=== PATIENT | female | born 1950 | race Caucasian/White ===

== ENCOUNTER 2017-07-14 14:44 | Inpatient (IN) | payer MEDICARE, OTHER ==
[2017-07-14 14:51] VITALS: BMI 21.1
[2017-07-14] MEDS ORDERED: Barium Sulfate Susp 0.1% w/v, 0.1% w/w 450 mL Bottle PO ONE (15:43)
[2017-07-14] MEDS ORDERED: Sodium Chloride 0.9% 1,000 ML IV ONE ×2 (15:55→22:31)
[2017-07-14 16:50] LABS: INR 0.9
--- NOTE | 2017-07-14 16:53 | C.PDOC ---
History Of Present Illness Patent sent to ED for evaluation of by GI Dr. Henson. Patient has h/o HTN, osteoporosis, and Crohn's disease. Patient states she has been having multiple episodes of bloody diarrhea for approx 2 months. Patient was on vacation in [place] last month, states she was seen in hospital there. A colonoscopy was done that showed ulceration of ileum, and patient was started on PO prednisone taper and 5-ASA. Patient also transfused PRBCs while in [place] and started on PO Ferrous sulfate for anemia. She states she has not had any improvement in her symptoms, and continues to have approx 15 episodes of blood streaked diarrhea daily. Patient c/o generalized weakness and exertional dyspnea. Time Seen by Provider: 07/14/17 15:17 Chief Complaint (Nursing): GI Problem History Per: Patient, Family History/Exam Limitations: no limitations Onset/Duration Of Symptoms: Persistent (2 months ) Current Symptoms Are (Timing): Still Present Severity: Moderate Location Of Pain/Discomfort: Diffuse Quality Of Discomfort: Cramping, "Pain" Associated Symptoms: Diarrhea Past Medical History Reviewed: Historical Data, Nursing Documentation, Vital Signs Vital Signs: Last Vital Signs Temp 97.8 F 07/17/17 07:10 Pulse 59 L 07/17/17 07:10 Resp 20 07/17/17 07:10 BP 106/68 07/17/17 07:10 Pulse Ox 94 L 07/17/17 07:10 - Medical History PMH: Crohn's Disease, HTN - [facility] Procedures EXCISION OF ASCENDING COLON, ENDO, DIAGN (07/14/17) EXCISION OF RECTUM, ENDO (07/14/17) EXCISION OF SIGMOID COLON, ENDO, DIAGN (07/14/17) EXCISION OF TRANSVERSE COLON, ENDO, DIAGN (07/14/17) Family History: States: No Known Family Hx - Social History Hx Alcohol Use: No Hx Substance Use: No - Immunization History Hx Tetanus Toxoid Vaccination: No Hx Influenza Vaccination: Yes Hx Pneumococcal Vaccination: Yes Review Of Systems Except As Marked, All Systems Reviewed And Found Negative. Constitutional: Positive for: Weakness. Negative for: Fever, Chills Cardiovascular: Negative for: Chest Pain, Palpitations Respiratory: Positive for: SOB with Excertion. Negative for: Cough Gastrointestinal: Positive for: Abdominal Pain, Diarrhea, Hematochezia. Negative for: Nausea, Vomiting Skin: Negative for: Rash Physical Exam - Physical Exam Appears: Non-toxic, No Acute Distress, Chronically Ill Skin: Warm, Dry, Pale Eye(s): bilateral: Conjunctiva Pale Oral Mucosa: Moist Cardiovascular: Rhythm Regular Respiratory: Normal Breath Sounds, No Rales, No Rhonchi, No Wheezing Gastrointestinal/Abdominal: Bowel Sounds, Soft, Tenderness (mild diffuse TTP), No Distention, No Guarding, No Rebound, Other (midline vertical surgical scar) Extremity: Normal ROM Extremity: Bilateral: Atraumatic, Normal Color And Temperature, Normal ROM Neurological/Psych: Oriented x3 ED Course And Treatment - Laboratory Results Result Diagrams: 07/17/17 08:14 07/17/17 08:14 O2 Sat by Pulse Oximetry: 100 (RA) Pulse Ox Interpretation: Normal Progress Note: Blood work ordered and reviewed. Patient given IV NS bolus, IV solumedrol. 5:30pm- Called hematology - unable to release CBC, tech unsure why. As per hematology tech, WBC 11.2, Hgb 8.9, Hct 28.0, Plts 462. 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 - Physician Consult Information Physician Contacted: Carmina Genao Outcome Of Conversation: Discussed patient with Dr. Genao, agrees with admission for Crohn's disease exacerbation, weakness, anemia. Dr. Henson for GI , consult entered. Disposition - Disposition Disposition: HOSPITALIZED Disposition Time: 18:22 Condition: STABLE - Clinical Impression Clinical Impression: Symptomatic anemia, General weakness Decision To Admit - Pt Status Changed To: Hospital Disposition Of: Inpatient - Admit Certification Admit to Inpatient:: After my assessment, the patient will require hospitalization for at least two midnights. This is because of the severity of symptoms shown, intensity of services needed, and/or the medical risk in this patient being treated as an outpatient. - InPatient: Physician Admission Certification:: see notes - . Bed Request Type: Regular Admitting Physician: Carmina Genao Patient Diagnosis: Crohns disease, General weakness, Symptomatic anemia
[2017-07-14 16:57] LABS: URINE BILIRUBIN NEGATIVE (NEGATIVE); URINE BLOOD NEGATIVE (NEGATIVE); URINE COLOR Colorless (YELLOW); URINE GLUCOSE (UA) NORMAL (Normal); URINE KETONE NEGATIVE (NEGATIVE); URINE LEUKOCYTE ESTERASE NEG Leu/uL (Negative); URINE PROTEIN NEGATIVE (NEGATIVE); URINE UROBILINOGEN NORMAL mg/dL (0.2-1.0); WBC URINE < 1 /hpf (0-5)
[2017-07-14 17:40] LABS: BASO # 0.1 K/uL (0.0-0.2); BASO % 0.5 % (0.0-2.0); EOS # 0.1 K/uL (0.0-0.7); EOS % 0.8 % (0.0-4.0); HEMATOCRIT 27.8 % (34.0-47.0); LYMPH # 3.4 K/uL (1.0-4.3); LYMPH % 30.3 % (20.0-40.0); MEAN CELL VOLUME 81.4 fL (81.0-99.0); MEAN CORPUSCULAR HEMOGLOBIN 26.1 pg (27.0-31.0); MONO # 0.5 K/uL (0.0-0.8); MONO % 4.6 % (0.0-10.0); RED CELL DISTRIBUTION WIDTH 20.6 % (11.5-14.5); WHITE BLOOD COUNT 11.3 K/uL (4.8-10.8)
[2017-07-14 18:06] LABS: CHLORIDE 95 mmol/L (98-107)
[2017-07-14 18:07] LABS: POTASSIUM 3.7 mmol/L (3.6-5.2); SODIUM 130 mmol/L (132-148)
[2017-07-14 18:09] LABS: ALB/GLOB RATIO 1.4 (1.0-2.1); ALKALINE PHOSPHATASE 38 U/L (38-126); ALT/SGPT 26 U/L (9-52); AST/SGOT 57 U/L (14-36); BILIRUBIN,TOTAL 0.6 mg/dL (0.2-1.3); BLOOD UREA NITROGEN 17 mg/dL (7-17); CARBON DIOXIDE 22 mmol/L (22-30); GFR AFRICAN-AMERICAN > 60; GLUCOSE,RANDOM 71 mg/dL (65-105)
[2017-07-14 18:10] LABS: CALCIUM 8.6 mg/dl (8.6-10.4)
[2017-07-14] MEDS ORDERED: Iodixanol 320 MG/ML 100 ML BOTTLE IV ONE (18:22)
[2017-07-14 21:40] LABS: C DIFF TOXIN A B NEGATIVE (NEGATIVE)
[2017-07-14] MEDS ORDERED: Atropine-Diphenoxylate 0.025-2.5 mg Tab PO SCH (22:00)
[2017-07-14] MEDS ORDERED: Atropine-Diphenoxylate 0.025-2.5 mg Tab ONE (22:24)
[2017-07-14 22:26] LABS: FECAL LEUKOCYTES NEGATIVE (NEGATIVE)
[2017-07-14] MEDS ORDERED: Dextrose 5%/0.9% NS 1,000 ML IV ONE (22:31)
[2017-07-14 22:44] LABS: IRON 195 ug/dL (37-170)
[2017-07-14] MEDS: Hydrocortisone 2.5% Rectal Cream(30 gm) PR SCH (23:17)
[2017-07-15] MEDS ORDERED: Sodium Chloride 0.9% 500 ML IV ONE (00:46)
[2017-07-15 01:57] LABS: HEMATOCRIT 23.4 % (34.0-47.0); MEAN CELL VOLUME 82.4 fL (81.0-99.0); MEAN CORPUSCULAR HEMOGLOBIN 26.8 pg (27.0-31.0); MEAN CORPUSCULAR HGB CONC 32.5 g/dL (33.0-37.0); MEAN PLATELET VOLUME 7.3 fL (7.2-11.7); PLATELET COUNT 392 K/uL (130-400); RED CELL DISTRIBUTION WIDTH 20.8 % (11.5-14.5); WHITE BLOOD COUNT 7.3 K/uL (4.8-10.8)
[2017-07-15 03:20] LABS: NEUTROPHIL 97 % (50-75); TOTAL CELLS COUNTED 100
[2017-07-15 03:23] LABS: LARGE PLATELETS PRESENT
[2017-07-15] MEDS ORDERED: Sodium Chloride 0.9% 1,000 ML IV ONE (05:20)
--- NOTE | 2017-07-15 09:29 | CP.PCM.CON ---
<Cyndi Pretty - Last Filed: 07/15/17 09:33> History of Present Illness - History of Present Illness History of Present Illness: Gastroenterology Fellow/PGY5 Consult Note 66 year old female with history of Hypertension, osteoporosis, and Crohn's disease diagnosed 1976 presenting with weakness. Patient was sent to ER from the outpatient GI clinic with Dr. Henson due to weakness, dehydration, and hypotension. She describes in the last month having up to 14 episodes of diarrhea daily ranging from watery, mucus-blood tinged to loree bloody diarrhea. Associated tenesmus and bilateral upper abdominal pain with all oral intake leading to immediate bowel movement. Admits to feeling weak, lightheaded , dizzy, and a approximate 13 pound weight loss over the last four months. As a result, she underwent EGD and colonoscopy in [facility] a month ago and was told she had diagnosis of Crohn's disease. She has since started Prednisone 60mg for one week and this coming (in two days) would have completed second week of steroid therapy at 55mg. Denies fever, chills, sweats, nausea, vomiting , hematemesis, constipation, eye pain/redness, back pain, kidney stones, skin rash/sores, aphthous ulcers. Denies NSAIDs use. She notes prior episode of ischemic bowel leading to two bowel surgeries in 1976. Subsequently in 1977, she describes profound symptomatic anemia requiring multiple transfusions. She had medical therapy with sulfasalazine for fifteen years. Followed y repeat EGD/colonoscopy and was told no IBD present on histology, switched to Creon for treatment of chronic pancreatitis taking 1-2 pills with every meal from 1989 to two months ago. Records obtained from family with most recent EGD and colonoscopy 06/04/17 to evaluate diarrhea and anemia Labwork: H/H 06/04/17 8.04/24.6 MCV 73.6 EGD- GE junction 38cm, LAGB esophagitis, normal stomach and duodenum -lower 1/3 esophagus biopsies-no dysplasia or intestinal metaplasia, mild chronic gastritis, gastric fundic gland polyp colonoscopy-continuous large ulceration at terminal ileum -pathology: moderate chronic active and focally erosive terminal ileitis -ileocecal valve at area of anastomosis with small bowel - small and medium sized ulcers -pathology: pseudopyogenic metaplasia, marked plasmacytosis (chronic injury), no granulomas-suspicious for IBD/Crohn's disease -cecum: s/p small bowel resection -normal ascending, hepatic flexure, transverse, splenic flexure , descending, sigmoid, rectum, small internal hemorrhoids -pathology- normal mucosa, no microscopic colitis Family- denies colon cancer, IBD, father-PUD Social-denies tobacco, alcohol, illicit drug use Surgery- small bowel resection with anastomosis Review of Systems - Review of Systems Review of Systems: 12-point review of systems negative except for as above Past Patient History - Past Social History Smoking Status: Never Smoked - CARDIAC Hx Hypertension: Yes - GASTROINTESTINAL Hx Crohn's Disease: Yes - PSYCHIATRIC Hx Substance Use: No - SURGICAL HISTORY Hx Surgeries: Yes Other/Comment: intestinal surgery 40 years ago Meds Allergies/Adverse Reactions: Allergies Allergy/AdvReac Type Severity Reaction Status Date / Time Penicillins Allergy Verified 07/14/17 14:50 - Medications Medications: Current Medications Heparin Sodium (Porcine) (Heparin) 5,000 units SC Q8 [facility] Hydrocortisone (Anusol-Hc) 0 gm WI BID [facility] Last Admin: 07/14/17 23:17 Dose: Not Given Pantoprazole Sodium (Protonix Ec Tab) 40 mg PO DAILY [facility] Sucralfate (Carafate Oral Susp) 1 gm PO BID [facility] Physical Exam - Constitutional Appears: No Acute Distress, Chronically Ill - Head Exam Head Exam: ATRAUMATIC, NORMOCEPHALIC - Eye Exam Eye Exam: EOMI, PERRL Pupil Exam: PERRL. absent: Miosis, Mydriatic - ENT Exam ENT Exam: Mucous Membranes Moist, Normal Oropharynx - Neck Exam Neck exam: Positive for: Full Rom, Normal Inspection - Respiratory Exam Respiratory Exam: Clear to Auscultation Bilateral. absent: Rales, Rhonchi, Wheezes - Cardiovascular Exam Cardiovascular Exam: RRR, +S1, +S2. absent: Gallop, Rubs - GI/Abdominal Exam GI & Abdominal Exam: Normal Bowel Sounds, Soft. absent: Distended, Firm, Guarding, Organomegaly, Rebound, Rigid, Tenderness - Extremities Exam Extremities exam: Positive for: normal inspection. Negative for: pedal edema - Neurological Exam Neurological exam: Alert - Psychiatric Exam Psychiatric exam: Normal Affect, Normal Mood - Skin Skin Exam: Dry, Intact, Normal Color, Warm Results - Vital Signs Recent Vital Signs: Last Vital Signs Temp 97.9 F 07/15/17 09:13 Pulse 73 07/15/17 09:13 Resp 18 07/15/17 09:13 BP 96/61 L 07/15/17 09:13 Pulse Ox 99 07/15/17 09:13 - Labs Result Diagrams: 07/15/17 01:47 07/14/17 18:01 Labs: Laboratory Results - last 24 hr 07/14/17 07/14/17 07/14/17 16:24 16:24 16:24 WBC RBC Hgb Hct MCV MCH MCHC RDW Plt Count MPV Neut % (Auto) Lymph % (Auto) [place] % (Auto) Eos % (Auto) Baso % (Auto) Neut # Lymph # [place] # Eos # Baso # Neutrophils % (Manual) Lymphocytes % (Manual) Monocytes % (Manual) Platelet Estimate Large Platelets Polychromasia Anisocytosis (manual) Ovalocytes Rouleaux Schistocytes PT INR APTT Sodium Cancelled Potassium Cancelled Chloride Cancelled Carbon Dioxide Cancelled Anion Gap Cancelled BUN Cancelled Creatinine Est GFR ( Amer) Cancelled Est GFR (Non-Af Amer) Cancelled Random Glucose Cancelled Calcium Cancelled Iron TIBC % Saturation Transferrin Ferritin 15.6 Total Bilirubin Cancelled AST Cancelled ALT Cancelled Alkaline Phosphatase Cancelled C-React Prot High Sens Total Protein Cancelled Albumin Cancelled Globulin Cancelled Albumin/Globulin Ratio Cancelled Lipase 252 Urine Color Urine Clarity Urine pH Ur Specific [place] Urine Protein Urine Glucose (UA) Urine Ketones Urine Blood Urine Nitrate Urine Bilirubin Urine Urobilinogen Ur Leukocyte Esterase Urine WBC (Auto) Stool Leukocytes, Qual C. difficile Ag & Toxin Hepatitis A IgM Ab Negative Hep Bs Antigen Negative Hep B Core IgM Ab Negative Hepatitis C Antibody Reactive Blood Type A POSITIVE Blood Type Confirm A POSITIVE Antibody Screen Negative 07/14/17 07/14/17 07/14/17 16:25 16:25 16:45 WBC RBC Hgb Hct MCV MCH MCHC RDW Plt Count MPV Neut % (Auto) Lymph % (Auto) [place] % (Auto) Eos % (Auto) Baso % (Auto) Neut # Lymph # [place] # Eos # Baso # Neutrophils % (Manual) Lymphocytes % (Manual) Monocytes % (Manual) Platelet Estimate Large Platelets Polychromasia Anisocytosis (manual) Ovalocytes Rouleaux Schistocytes PT 9.4 L INR 0.9 APTT 21 Sodium Potassium Chloride Carbon Dioxide Anion Gap BUN Creatinine Est GFR ( Amer) Est GFR (Non-Af Amer) Random Glucose Calcium Iron TIBC % Saturation Transferrin 288.34 Ferritin Total Bilirubin AST ALT Alkaline Phosphatase C-React Prot High Sens Total Protein Albumin Globulin Albumin/Globulin Ratio Lipase Urine Color Colorless Urine Clarity Clear Urine pH 5.0 Ur Specific [place] 1.002 L Urine Protein Negative Urine Glucose (UA) Normal Urine Ketones Negative Urine Blood Negative Urine Nitrate Negative Urine Bilirubin Negative Urine Urobilinogen Normal Ur Leukocyte Esterase Neg Urine WBC (Auto) < 1 Stool Leukocytes, Qual C. difficile Ag & Toxin Hepatitis A IgM Ab Hep Bs Antigen Hep B Core IgM Ab Hepatitis C Antibody Blood Type Blood Type Confirm Antibody Screen 07/14/17 07/14/17 07/14/17 17:34 18:01 20:01 WBC 11.3 H RBC 3.42 L Hgb 8.9 L Hct 27.8 L MCV 81.4 MCH 26.1 L MCHC 32.0 L RDW 20.6 H Plt Count 455 H MPV 8.0 Neut % (Auto) 63.8 Lymph % (Auto) 30.3 [place] % (Auto) 4.6 Eos % (Auto) 0.8 Baso % (Auto) 0.5 Neut # 7.2 H Lymph # 3.4 [place] # 0.5 Eos # 0.1 Baso # 0.1 Neutrophils % (Manual) Lymphocytes % (Manual) Monocytes % (Manual) Platelet Estimate Large Platelets Polychromasia Anisocytosis (manual) Ovalocytes Rouleaux Schistocytes PT INR APTT Sodium 130 L Potassium 3.7 Chloride 95 L Carbon Dioxide 22 Anion Gap 17 BUN 17 Creatinine 0.8 Est GFR ( Amer) > 60 Est GFR (Non-Af Amer) > 60 Random Glucose 71 Calcium 8.6 Iron TIBC % Saturation Transferrin Ferritin Total Bilirubin 0.6 AST 57 H ALT 26 Alkaline Phosphatase 38 C-React Prot High Sens 1.19 Total Protein 6.0 L Albumin 3.5 Globulin 2.5 Albumin/Globulin Ratio 1.4 Lipase Urine Color Urine Clarity Urine pH Ur Specific [place] Urine Protein Urine Glucose (UA) Urine Ketones Urine Blood Urine Nitrate Urine Bilirubin Urine Urobilinogen Ur Leukocyte Esterase Urine WBC (Auto) Stool Leukocytes, Qual C. difficile Ag & Toxin Hepatitis A IgM Ab Hep Bs Antigen Hep B Core IgM Ab Hepatitis C Antibody Blood Type Blood Type Confirm Antibody Screen 07/14/17 07/14/17 07/15/17 21:02 22:41 01:47 WBC 7.3 RBC 2.84 L Hgb 7.6 L Hct 23.4 L MCV 82.4 MCH 26.8 L MCHC 32.5 L RDW 20.8 H Plt Count 392 MPV 7.3 Neut % (Auto) Lymph % (Auto) [place] % (Auto) Eos % (Auto) Baso % (Auto) Neut # Lymph # [place] # Eos # Baso # Neutrophils % (Manual) 97 H Lymphocytes % (Manual) 3 L Monocytes % (Manual) TEST NOT PERFORMED Platelet Estimate Normal Large Platelets Present Polychromasia Moderate Anisocytosis (manual) Moderate Ovalocytes Slight Rouleaux Slight Schistocytes Slight PT INR APTT Sodium Potassium Chloride Carbon Dioxide Anion Gap BUN Creatinine Est GFR ( Amer) Est GFR (Non-Af Amer) Random Glucose Calcium Iron 195 H TIBC 407 % Saturation 48 Transferrin Ferritin Total Bilirubin AST ALT Alkaline Phosphatase C-React Prot High Sens Total Protein Albumin Globulin Albumin/Globulin Ratio Lipase Urine Color Urine Clarity Urine pH Ur Specific [place] Urine Protein Urine Glucose (UA) Urine Ketones Urine Blood Urine Nitrate Urine Bilirubin Urine Urobilinogen Ur Leukocyte Esterase Urine WBC (Auto) Stool Leukocytes, Qual Negative C. difficile Ag & Toxin Negative Hepatitis A IgM Ab Hep Bs Antigen Hep B Core IgM Ab Hepatitis C Antibody Blood Type Blood Type Confirm Antibody Screen Assessment & Plan - Assessment and Plan (Free Text) Assessment: 66 year old female with history of Hypertension, osteoporosis, and Crohn's disease (diagnosed 1976) s/p bowel resection 2/2 ischemic bowel presenting with diarrhea and weakness. Active treatment of anemia, dehydration, and Crohn' s flare with failed outpatient medical therapy of steroid taper. EGD/ colonoscopy 06/04/17 showed LAGB esophagitis (no dysplasia/intestinal metaplasia) , mild chronic gastritis, gastric fundic gland polyp, continuous large ulceration-terminal ileitis, ileocecal valve at area of anastomosis with small bowel - small and medium sized ulcers-pathology: pseudopyogenic metaplasia, marked plasmacytosis (chronic injury), no granulomas-suspicious for IBD/Crohn's disease, cecum: s/p small bowel resection, and remainder of colon with normal mucosa. Plan: >severe disease- Meir- Chandler index 19; CDAI 213 >received fluid bolusesdue to hypotension >1U pRBC with anemia >no oral iron as can worsen colonic insult with active colitis >obtain Hematology consult to evaluate likely need for IV iron infusion >ordered infectious stool workup >order stool electrolytes to differentia ostomic vs secretory diarrhea >hold steroid therapy >obtained Hepatitis panel >pending TB Gold >pending CT enterography to evaluate disease extent and severity >avoid NSAIDs, no indication for antibiotics at this point >hold steroid therapy in immunocompromised state while rule out underlying infectious process >will discuss endoscopy results and monitor clinical response to delineate need for inpatient endoscopic evaluation >will follow clinical course <Santo Henson - Last Filed: 07/15/17 12:36> Meds - Medications Medications: Current Medications Bisacodyl (Dulcolax) 5 mg PO ONCE ONE Stop: 07/15/17 18:01 Heparin Sodium (Porcine) (Heparin) 5,000 units SC Q8 [facility] Hydrocortisone (Anusol-Hc) 0 gm WI BID [facility] Last Admin: 07/15/17 11:28 Dose: 1 applic Pantoprazole Sodium (Protonix Ec Tab) 40 mg PO DAILY [facility] Last Admin: 07/15/17 11:16 Dose: 40 mg Polyethylene Glycol/Electrolytes (Golytely) 4,000 ml PO ONCE ONE Stop: 07/15/17 14:01 Sucralfate (Carafate Oral Susp) 1 gm PO BID [facility] Last Admin: 07/15/17 11:17 Dose: 1 gm Results - Vital Signs Recent Vital Signs: Last Vital Signs Temp 97.6 F 07/15/17 11:00 Pulse 61 07/15/17 11:00 Resp 20 07/15/17 11:00 BP 115/73 07/15/17 11:00 Pulse Ox 99 07/15/17 11:00 - Labs Result Diagrams: 07/15/17 01:47 07/14/17 18:01 Labs: Laboratory Results - last 24 hr 07/14/17 07/14/17 07/14/17 16:24 16:24 16:24 WBC RBC Hgb Hct MCV MCH MCHC RDW Plt Count MPV Neut % (Auto) Lymph % (Auto) [place] % (Auto) Eos % (Auto) Baso % (Auto) Neut # Lymph # [place] # Eos # Baso # Neutrophils % (Manual) Lymphocytes % (Manual) Monocytes % (Manual) Platelet Estimate Large Platelets Polychromasia Anisocytosis (manual) Ovalocytes Rouleaux Schistocytes PT INR APTT Sodium Cancelled Potassium Cancelled Chloride Cancelled Carbon Dioxide Cancelled Anion Gap Cancelled BUN Cancelled Creatinine Est GFR ( Amer) Cancelled Est GFR (Non-Af Amer) Cancelled Random Glucose Cancelled Calcium Cancelled Iron TIBC % Saturation Transferrin Ferritin 15.6 Total Bilirubin Cancelled AST Cancelled ALT Cancelled Alkaline Phosphatase Cancelled C-React Prot High Sens Total Protein Cancelled Albumin Cancelled Globulin Cancelled Albumin/Globulin Ratio Cancelled Lipase 252 Urine Color Urine Clarity Urine pH Ur Specific [place] Urine Protein Urine Glucose (UA) Urine Ketones Urine Blood Urine Nitrate Urine Bilirubin Urine Urobilinogen Ur Leukocyte Esterase Urine WBC (Auto) Stool Leukocytes, Qual C. difficile Ag & Toxin Hepatitis A IgM Ab Negative Hep Bs Antigen Negative Hep B Core IgM Ab Negative Hepatitis C Antibody Reactive Blood Type A POSITIVE Blood Type Confirm A POSITIVE Antibody Screen Negative 07/14/17 07/14/17 07/14/17 16:25 16:25 16:45 WBC RBC Hgb Hct MCV MCH MCHC RDW Plt Count MPV Neut % (Auto) Lymph % (Auto) [place] % (Auto) Eos % (Auto) Baso % (Auto) Neut # Lymph # [place] # Eos # Baso # Neutrophils % (Manual) Lymphocytes % (Manual) Monocytes % (Manual) Platelet Estimate Large Platelets Polychromasia Anisocytosis (manual) Ovalocytes Rouleaux Schistocytes PT 9.4 L INR 0.9 APTT 21 Sodium Potassium Chloride Carbon Dioxide Anion Gap BUN Creatinine Est GFR ( Amer) Est GFR (Non-Af Amer) Random Glucose Calcium Iron TIBC % Saturation Transferrin 288.34 Ferritin Total Bilirubin AST ALT Alkaline Phosphatase C-React Prot High Sens Total Protein Albumin Globulin Albumin/Globulin Ratio Lipase Urine Color Colorless Urine Clarity Clear Urine pH 5.0 Ur Specific [place] 1.002 L Urine Protein Negative Urine Glucose (UA) Normal Urine Ketones Negative Urine Blood Negative Urine Nitrate Negative Urine Bilirubin Negative Urine Urobilinogen Normal Ur Leukocyte Esterase Neg Urine WBC (Auto) < 1 Stool Leukocytes, Qual C. difficile Ag & Toxin Hepatitis A IgM Ab Hep Bs Antigen Hep B Core IgM Ab Hepatitis C Antibody Blood Type Blood Type Confirm Antibody Screen 07/14/17 07/14/17 07/14/17 17:34 18:01 20:01 WBC 11.3 H RBC 3.42 L Hgb 8.9 L Hct 27.8 L MCV 81.4 MCH 26.1 L MCHC 32.0 L RDW 20.6 H Plt Count 455 H MPV 8.0 Neut % (Auto) 63.8 Lymph % (Auto) 30.3 [place] % (Auto) 4.6 Eos % (Auto) 0.8 Baso % (Auto) 0.5 Neut # 7.2 H Lymph # 3.4 [place] # 0.5 Eos # 0.1 Baso # 0.1 Neutrophils % (Manual) Lymphocytes % (Manual) Monocytes % (Manual) Platelet Estimate Large Platelets Polychromasia Anisocytosis (manual) Ovalocytes Rouleaux Schistocytes PT INR APTT Sodium 130 L Potassium 3.7 Chloride 95 L Carbon Dioxide 22 Anion Gap 17 BUN 17 Creatinine 0.8 Est GFR ( Amer) > 60 Est GFR (Non-Af Amer) > 60 Random Glucose 71 Calcium 8.6 Iron TIBC % Saturation Transferrin Ferritin Total Bilirubin 0.6 AST 57 H ALT 26 Alkaline Phosphatase 38 C-React Prot High Sens 1.19 Total Protein 6.0 L Albumin 3.5 Globulin 2.5 Albumin/Globulin Ratio 1.4 Lipase Urine Color Urine Clarity Urine pH Ur Specific [place] Urine Protein Urine Glucose (UA) Urine Ketones Urine Blood Urine Nitrate Urine Bilirubin Urine Urobilinogen Ur Leukocyte Esterase Urine WBC (Auto) Stool Leukocytes, Qual C. difficile Ag & Toxin Hepatitis A IgM Ab Hep Bs Antigen Hep B Core IgM Ab Hepatitis C Antibody Blood Type Blood Type Confirm Antibody Screen 07/14/17 07/14/17 07/15/17 21:02 22:41 01:47 WBC 7.3 RBC 2.84 L Hgb 7.6 L Hct 23.4 L MCV 82.4 MCH 26.8 L MCHC 32.5 L RDW 20.8 H Plt Count 392 MPV 7.3 Neut % (Auto) Lymph % (Auto) [place] % (Auto) Eos % (Auto) Baso % (Auto) Neut # Lymph # [place] # Eos # Baso # Neutrophils % (Manual) 97 H Lymphocytes % (Manual) 3 L Monocytes % (Manual) TEST NOT PERFORMED Platelet Estimate Normal Large Platelets Present Polychromasia Moderate Anisocytosis (manual) Moderate Ovalocytes Slight Rouleaux Slight Schistocytes Slight PT INR APTT Sodium Potassium Chloride Carbon Dioxide Anion Gap BUN Creatinine Est GFR ( Amer) Est GFR (Non-Af Amer) Random Glucose Calcium Iron 195 H TIBC 407 % Saturation 48 Transferrin Ferritin Total Bilirubin AST ALT Alkaline Phosphatase C-React Prot High Sens Total Protein Albumin Globulin Albumin/Globulin Ratio Lipase Urine Color Urine Clarity Urine pH Ur Specific [place] Urine Protein Urine Glucose (UA) Urine Ketones Urine Blood Urine Nitrate Urine Bilirubin Urine Urobilinogen Ur Leukocyte Esterase Urine WBC (Auto) Stool Leukocytes, Qual Negative C. difficile Ag & Toxin Negative Hepatitis A IgM Ab Hep Bs Antigen Hep B Core IgM Ab Hepatitis C Antibody Blood Type Blood Type Confirm Antibody Screen Attending/Attestation - Attestation I have personally seen and examined this patient.: Yes I have fully participated in the care of the patient.: Yes I have reviewed all pertinent clinical information: Yes Notes (Text): 07/15/17 12:23 I have seen and examined patient with GI fellow. Agree with above documentation with the following additions. In brief, this is a 66 year old female with history of HTN, osteoporosis, crohn's disease of small bowel who presents with complaint of increased bowel frequency, weight loss, and rectal bleeding. Symptoms have been slowly progressive over the course of 2 years, worse over the past two months. She recently took a trip to [facility] where she was hospitalized for similar complaints. She underwent EGD/colonoscopy last month which showed small bowel (ileal) and anastomotic ulceration suggestive of crohn's disease exacerbation. She was started on oral steroid therapy and returned to the [facility] for further management. She was initially diagnosed with disease in the 1970s following emergent small bowel resection due to ischemia. Since then she has been maintained intermittently on Pentasa therapy and also was placed on Creon for unclear reasons. She describes having up to 13 loose bowel movements daily with generalized abdominal pain, often with blood tinge and weight loss of 13 pounds over the past 4 months. Biopsies from recent colonoscopy did not show presence of dysplasia as per family members. HTN Osteoporosis Abdominal pain, diarrhea, weight loss - prior history of Crohn's disease of small bowel Recent colonoscopy showing small bowel and anastomotic ulceration, non- responsive to outpatient steroid therapy Anemia - Liquid diet as tolerated - Obtain CT enterography for further evaluation of small bowel - Continue with PPI therapy - Obtain stool studies (culture, c-difficile, O/P) - Obtain hepatitis panel, quantiferon gold, TPMT enzyme activity in the event that step up therapy is required - Patient currently receiving 1 U PRBC transfusion, monitor H/H - Avoid oral iron replacement therapy as this may exacerbate underlying colitis , would suggest IV infusion therapy if clinically indicated - Hold on steroid therapy for time being and given apparent failure of outpatient management, would suggest repeat colonoscopy to rule out other etiologies of colitis including CMV/HSV. Golytely bowel preparation today, NPO after midnight. - DVT PPx required due to underlying inflammatory bowel disease
[2017-07-15] MEDS ORDERED: Hydrocortisone 2.5% Rectal Cream(30 gm) PR SCH (10:00)
[2017-07-15] MEDS: Pantoprazole 40 mg EC Tab PO SCH (11:16)
[2017-07-15] MEDS: Sucralfate 1 gm/10 ml Oral Susp UD PO SCH ×2 (11:17→18:12)
[2017-07-15] MEDS: Hydrocortisone 2.5% Rectal Cream(30 gm) PR SCH ×2 (11:28→18:12)
--- NOTE | 2017-07-15 11:39 | CT ---
PROCEDURE: CT Abdomen and Pelvis with oral and IV contrast. HISTORY: evaluate crohn's disease COMPARISON: None available. TECHNIQUE: Contiguous axial images of the abdomen and pelvis. Oral and IV contrast was administered. Coronal and Sagittal reformats generated and reviewed. Contrast dose: 100 mL Visipaque IV. Volumen was administered orally. Radiation dose: Total exam DLP = 198.45 mGy-cm. This CT exam was performed using one or more of the following dose reduction techniques: Automated exposure control, adjustment of the mA and/or kV according to patient size, and/or use of iterative reconstruction technique. FINDINGS: LOWER THORAX: No visible consolidation, pleural effusion, or pneumothorax. Small hiatal hernia/distal esophageal wall thickening. LIVER: Hypoattenuation of the liver compatible with hepatic steatosis. GALLBLADDER AND BILE DUCTS: Cholelithiasis. PANCREAS: Unremarkable. SPLEEN: Unremarkable. ADRENALS: Unremarkable. KIDNEYS AND URETERS: The kidneys enhance symmetrically. No hydronephrosis or obstructing renal calculus. 7 mm left low-density renal lesion, too small to characterize ; statistically likely a cyst. BLADDER: The urinary bladder appears unremarkable. REPRODUCTIVE: Uterus is present. APPENDIX: The appendix is not identified. No secondary signs of acute appendicitis. BOWEL: The stomach is nondistended. The bowel loops appear within normal limits of caliber without evidence of intestinal obstruction. No abnormal bowel enhancement. The visualized portions of the terminal ileum appear unremarkable. No focal stricture or fistula appreciated. PERITONEUM: No significant free fluid. No definite free air. LYMPH NODES: Enlarged mesenteric adenopathy measuring up to 14 mm (series 3, image 92). VASCULATURE: No aortic aneurysm. BONES: Mild degenerative changes. OTHER FINDINGS: None. IMPRESSION: Enlarged nonspecific mesenteric adenopathy measuring up to 14 mm, likely reactive. Small hiatal hernia/distal esophageal wall thickening. Cholelithiasis. Hypoattenuation of the liver compatible with hepatic steatosis. Too small to characterize 7 mm left renal low-density lesion; statistically likely a cyst. Unremarkable appearance of the bowel without abnormal bowel wall thickening, enhancement, definite stricture, or fistula.
[2017-07-15] MEDS ORDERED: Peg-Electrolyte Oral Soln 4L (Golytely) PO ONE (14:00)
--- NOTE | 2017-07-15 14:19 | CP.PCM.PN ---
Subjective - Date & Time of Evaluation Date of Evaluation: 07/15/17 Time of Evaluation: 09:45 - Subjective Subjective: Dr. Emmanuel notes: Patient is a 66 year old male with a history of Crohn's disease is here in the hospital because of several bouts of bloody diarrhea before admission. She was being treated for Crohn's disease in [facility] and here [place] the [place]. She said she used to be on medication but does not remember what it was when asked. She does report she has an ulcer Objective - Vital Signs/Intake and Output Vital Signs (last 24 hours): Temp Pulse Resp BP Pulse Ox 97.6 F 61 20 115/73 99 07/15/17 11:00 07/15/17 11:00 07/15/17 11:00 07/15/17 11:00 07/15/17 11:00 Intake and Output: 07/15/17 07/15/17 06:59 18:59 Intake Total 2200 Output Total 1250 Balance 950 - Medications Medications: Current Medications Bisacodyl (Dulcolax) 5 mg PO ONCE ONE Stop: 07/15/17 18:01 Heparin Sodium (Porcine) (Heparin) 5,000 units SC Q8 [facility] Last Admin: 07/15/17 14:17 Dose: 5,000 units Hydrocortisone (Anusol-Hc) 0 gm [place] BID [facility] Last Admin: 07/15/17 11:28 Dose: 1 applic Ondansetron HCl (Zofran Inj) 4 mg IVP Q8 PRN PRN Reason: Nausea/Vomiting Last Admin: 07/15/17 12:43 Dose: 4 mg Pantoprazole Sodium (Protonix Ec Tab) 40 mg PO DAILY [facility] Last Admin: 07/15/17 11:16 Dose: 40 mg Sucralfate (Carafate Oral Susp) 1 gm PO BID [facility] Last Admin: 07/15/17 11:17 Dose: 1 gm - Labs Labs: 07/15/17 01:47 07/14/17 18:01 PT 9.4 SECONDS (9.7-12.2) L 07/14/17 16:25 INR 0.9 07/14/17 16:25 APTT 21 SECONDS (21-34) 07/14/17 16:25 - Constitutional Appears: Non-toxic, No Acute Distress - Eye Exam Eye Exam: Normal appearance - Respiratory Exam Respiratory Exam: Clear to Ausculation Bilateral. absent: Rales, Rhonchi, Wheezes - Cardiovascular Exam Cardiovascular Exam: REGULAR RHYTHM, RRR, +S1, +S2. absent: Gallop, Rubs - GI/Abdominal Exam GI & Abdominal Exam: Soft, Tenderness, Normal Bowel Sounds. absent: Guarding - Extremities Exam Extremities Exam: Normal Inspection. absent: Pedal Edema - Back Exam Back Exam: absent: CVA tenderness (L), CVA tenderness (R) - Psychiatric Exam Psychiatric exam: Flat Affect - Skin Skin Exam: Normal Color Assessment and Plan (1) Crohns disease Assessment & Plan: Patient was admitted last night, she was orginally put on steroids but Dr. Henson GI consult took her off of it. She has a report of a colonscopy from [place] in the chart. Dr. Henson will repeat the colonoscopy tomorrow. She is on Dulcolax, Carafate, and IV Zofran prn. C-diff negative, other stool studies pending Status: Acute (2) Anemia Assessment & Plan: Hbg is 9.8, after transfusion of PRBCs. continue to monitor. Status: Acute (3) Prophylactic measure Assessment & Plan: PO protonix 40mg, Heparin 5000 units q8h per GI's note, SCDs Status: Acute
[2017-07-15 14:32] LABS: HEMATOCRIT 30.1 % (34.0-47.0); MEAN CORPUSCULAR HEMOGLOBIN 27.5 pg (27.0-31.0); MEAN CORPUSCULAR HGB CONC 32.6 g/dL (33.0-37.0); MEAN PLATELET VOLUME 8.1 fL (7.2-11.7); PLATELET COUNT 366 K/uL (130-400); RED CELL DISTRIBUTION WIDTH 20.4 % (11.5-14.5)
[2017-07-15 14:35] LABS: MEAN CELL VOLUME 84.4 fL (81.0-99.0)
[2017-07-15 15:26] LABS: EOS # 0.1 K/uL (0.0-0.7); LYMPH # 0.7 K/uL (1.0-4.3); MONO # 0.7 K/uL (0.0-0.8)
[2017-07-15 15:30] LABS: BASOPHIL 1 % (0-2); NEUTROPHIL 88 % (50-75); TOTAL CELLS COUNTED 100
[2017-07-15] MEDS ORDERED: Bisacodyl 5mg EC Tab PO ONE (18:00)
[2017-07-15] MEDS ORDERED: MethylPREDNISolone 40 mg Vial IVP SCH ×2 (22:15→22:45)
[2017-07-16 07:14] LABS: CHLORIDE 105 mmol/L (98-107)
[2017-07-16 07:15] LABS: SODIUM 138 mmol/L (132-148)
[2017-07-16 07:16] LABS: HEMATOCRIT 30.2 % (34.0-47.0); MEAN CELL VOLUME 83.6 fL (81.0-99.0); MEAN CORPUSCULAR HGB CONC 33.5 g/dL (33.0-37.0); PLATELET COUNT 381 K/uL (130-400); POTASSIUM 3.6 mmol/L (3.6-5.2); RED CELL DISTRIBUTION WIDTH 20.6 % (11.5-14.5); WHITE BLOOD COUNT 6.4 K/uL (4.8-10.8)
[2017-07-16 07:18] LABS: ALKALINE PHOSPHATASE 40 U/L (38-126); ALT/SGPT 31 U/L (9-52); AST/SGOT 24 U/L (14-36); BILIRUBIN,TOTAL 0.7 mg/dL (0.2-1.3); BLOOD UREA NITROGEN 4 mg/dL (7-17); CALCIUM 8.4 mg/dl (8.6-10.4); CARBON DIOXIDE 23 mmol/L (22-30); GFR AFRICAN-AMERICAN > 60; GLUCOSE,RANDOM 90 mg/dL (65-105); TOTAL PROTEIN 5.4 g/dL (6.3-8.3)
[2017-07-16 09:16] LABS: LYMPH # 0.4 K/uL (1.0-4.3); MONO # 0.1 K/uL (0.0-0.8)
[2017-07-16 09:17] LABS: NEUTROPHIL 93 % (50-75); TOTAL CELLS COUNTED 100
[2017-07-16] MEDS ORDERED: MethylPREDNISolone 40 mg Vial IV SCH (10:00)
[2017-07-16] MEDS: Pantoprazole 40 mg EC Tab PO SCH (10:23)
[2017-07-16] MEDS: Hydrocortisone 2.5% Rectal Cream(30 gm) PR SCH ×2 (10:25→18:44)
[2017-07-16] MEDS ORDERED: Lactated Ringer's 1,000 ML IV ONE (12:25)
[2017-07-16] MEDS ORDERED: Propofol 10 mg/ml Inj (20 ML) ONE (12:37)
[2017-07-16] MEDS ORDERED: Atropine Sulfate 0.4 mg/ml (0.8mg/2ml) Syringe IV ONE (12:45)
[2017-07-16] MEDS: Sucralfate 1 gm/10 ml Oral Susp UD PO SCH ×2 (14:07→17:18)
--- NOTE | 2017-07-16 15:29 | CP.PCM.PN ---
Subjective - Date & Time of Evaluation Date of Evaluation: 07/16/17 Time of Evaluation: 10:00 - Subjective Subjective: Dr. Emmanuel note: Patient seen in room with her at bedside. She says her diarrhea has improved since admission and she is not complaining of abdominal pain. She also denies nausea, vomiting, fever, or chills. Objective - Vital Signs/Intake and Output Vital Signs (last 24 hours): Temp Pulse Resp BP Pulse Ox 96.8 F L 52 L 12 156/78 H 100 07/16/17 13:35 07/16/17 14:05 07/16/17 14:05 07/16/17 14:05 07/16/17 14:05 Intake and Output: 07/16/17 07/16/17 06:59 18:59 Intake Total 4200 Balance 4200 - Medications Medications: Current Medications Heparin Sodium (Porcine) (Heparin) 5,000 units SC Q8 [facility] Last Admin: 07/16/17 14:07 Dose: Not Given Hydrocortisone (Anusol-Hc) 0 gm [place] BID [facility] Last Admin: 07/16/17 10:25 Dose: 1 applic Lactated Ringer's (Lactated Ringer's 500ml) 500 mls @ 75 mls/hr IV .Q6H40M [facility] Ondansetron HCl (Zofran Inj) 4 mg IVP Q8 PRN PRN Reason: Nausea/Vomiting Last Admin: 07/15/17 12:43 Dose: 4 mg Pantoprazole Sodium (Protonix Ec Tab) 40 mg PO DAILY [facility] Last Admin: 07/16/17 10:23 Dose: 40 mg Sucralfate (Carafate Oral Susp) 1 gm PO BID [facility] Last Admin: 07/16/17 14:07 Dose: Not Given - Labs Labs: 07/16/17 06:54 07/16/17 06:54 PT 9.4 SECONDS (9.7-12.2) L 07/14/17 16:25 INR 0.9 07/14/17 16:25 APTT 21 SECONDS (21-34) 07/14/17 16:25 - Constitutional Appears: Non-toxic, No Acute Distress - Eye Exam Eye Exam: Normal appearance. absent: Scleral icterus Pupil Exam: NORMAL ACCOMODATION - ENT Exam ENT Exam: Normal Exam - Respiratory Exam Respiratory Exam: Clear to Ausculation Bilateral. absent: Rales, Rhonchi, Wheezes - Cardiovascular Exam Cardiovascular Exam: REGULAR RHYTHM, RRR, +S1, +S2. absent: Gallop, Rubs - GI/Abdominal Exam GI & Abdominal Exam: Soft, Tenderness, Normal Bowel Sounds. absent: Guarding - Extremities Exam Extremities Exam: absent: Pedal Edema - Psychiatric Exam Psychiatric exam: Normal Affect, Normal Mood - Skin Skin Exam: Normal Color Assessment and Plan - Assessment and Plan (Free Text) Assessment: (1) Crohns disease Assessment & Plan: 07/16: Colonoscopy today, Spoke with Dr. Henson, will follow up the biopsy results, no evidence of Crohn's disease, large polyup in the rectum. continue with current medical management, all stool studies so far are negative, TB negative, follow up HIV screen tomorrow. Patient was admitted last night, she was orginally put on steroids but Dr. Henson GI consult took her off of it. She has a report of a colonscopy from [place] in the chart. Dr. Henson will repeat the colonoscopy tomorrow. She is on Dulcolax, Carafate, and IV Zofran prn. C-diff negative, other stool studies pending Status: Acute 2. Hepatitis C: Test came back reactive, will get Hep C antibody and Hep C quantitative. (3) Anemia Assessment & Plan: Hbg is 9.8, after transfusion of PRBCs. continue to monitor. Status: Acute (4) Prophylactic measure Assessment & Plan: PO protonix 40mg, Heparin 5000 units q8h per GI's note, SCDs Status: Acute
[2017-07-16 16:13] VITALS: RESP 20
[2017-07-17] MEDS: Lactated Ringer's 500 ML IV SCH ×3 (02:49→09:30)
--- NOTE | 2017-07-17 06:10 | CP.PCM.PN ---
<Cyndi Pretty - Last Filed: 07/17/17 08:00> Subjective - Date & Time of Evaluation Date of Evaluation: 07/17/17 Time of Evaluation: 06:08 - Subjective Subjective: Gastroenterology Fellow/PGY5 Progress Note Patient denies abdominal pain. Tolerating diet. One large loose stool immediately after eating yesterday. A 12-point review of systems negative except for as above. Objective - Vital Signs/Intake and Output Vital Signs (last 24 hours): Temp Pulse Resp BP Pulse Ox 98.8 F 58 L 20 102/60 98 07/17/17 00:05 07/17/17 00:45 07/17/17 00:05 07/17/17 00:05 07/17/17 00:05 - Medications Medications: Current Medications Heparin Sodium (Porcine) (Heparin) 5,000 units SC Q8 [facility] Last Admin: 07/17/17 05:41 Dose: 5,000 units Hydrocortisone (Anusol-Hc) 0 gm [place] BID [facility] Last Admin: 07/16/17 18:44 Dose: 1 applic Lactated Ringer's (Lactated Ringer's 500ml) 500 mls @ 75 mls/hr IV .Q6H40M [facility] Last Admin: 07/17/17 05:49 Dose: 75 mls/hr Ondansetron HCl (Zofran Inj) 4 mg IVP Q8 PRN PRN Reason: Nausea/Vomiting Last Admin: 07/15/17 12:43 Dose: 4 mg Pantoprazole Sodium (Protonix Ec Tab) 40 mg PO DAILY [facility] Last Admin: 07/16/17 10:23 Dose: 40 mg Sucralfate (Carafate Oral Susp) 1 gm PO BID [facility] Last Admin: 07/16/17 17:18 Dose: 1 gm - Labs Labs: 07/16/17 06:54 07/16/17 06:54 PT 9.4 SECONDS (9.7-12.2) L 07/14/17 16:25 INR 0.9 07/14/17 16:25 APTT 21 SECONDS (21-34) 07/14/17 16:25 - Constitutional Appears: Non-toxic, No Acute Distress - Eye Exam Eye Exam: EOMI, PERRL Pupil Exam: PERRL. absent: Miosis, Mydriatic - ENT Exam ENT Exam: Mucous Membranes Moist, Normal Oropharynx - Neck Exam Neck Exam: Full ROM, Normal Inspection - Respiratory Exam Respiratory Exam: Clear to Ausculation Bilateral. absent: Rales, Rhonchi, Wheezes - Cardiovascular Exam Cardiovascular Exam: RRR, +S1, +S2. absent: Gallop, Rubs - GI/Abdominal Exam GI & Abdominal Exam: Soft, Normal Bowel Sounds. absent: Distended, Firm, Guarding, Rigid, Tenderness, Organomegaly, Rebound - Extremities Exam Extremities Exam: Normal Inspection. absent: Pedal Edema - Neurological Exam Neurological Exam: Alert, Awake - Psychiatric Exam Psychiatric exam: Normal Affect, Normal Mood - Skin Skin Exam: Dry, Intact, Normal Color, Warm Assessment and Plan - Assessment and Plan (Free Text) Assessment: 66 year old female with history of Hypertension, osteoporosis, and Crohn's disease (diagnosed 1976) s/p bowel resection 2/2 ischemic bowel presenting with diarrhea and weakness. Active treatment of diarrhea, anemia s/p 2U pRBCs, and hypotension. EGD/colonoscopy 06/04/17 at outside facility showed LAGB esophagitis, gastritis, large ulceration terminal ileitis, cecum -small bowel anastomotic ulcers showing pseudopyogenic metaplasia, marked plasmacytosis ( chronic injury), no granulomas-suspicious for IBD/Crohn's disease. Plan: >POD1 (07/16) colonoscopy showing no signs of IBD, normal [place]-terminal ileum, colo-colonic anastomosis in cecum -anastomotic ulceration on two consecutive folds s/p biopsy -2cm rectal sessile polyp- s/p polypectomy -random biopsies of remainder of colon >contact pathology today >rule out CMV/HSV >follow up stool workup >pending stool gap >H/H stable >diarrhea management altered diet >monitor stool frequency >no signs of IBD on endoscopic evaluation >will follow clinical course <Santo Henson - Last Filed: 07/17/17 14:23> Objective - Vital Signs/Intake and Output Vital Signs (last 24 hours): Temp Pulse Resp BP Pulse Ox 97.8 F 59 L 20 106/68 94 L 07/17/17 07:10 07/17/17 07:10 07/17/17 07:10 07/17/17 07:10 07/17/17 07:10 Intake and Output: 07/17/17 07/17/17 06:59 18:59 Intake Total 120 Balance 120 - Labs Labs: 07/17/17 08:14 07/17/17 08:14 PT 9.4 SECONDS (9.7-12.2) L 07/14/17 16:25 INR 0.9 07/14/17 16:25 APTT 21 SECONDS (21-34) 07/14/17 16:25 Attending/Attestation - Attestation I have personally seen and examined this patient.: Yes I have fully participated in the care of the patient.: Yes I have reviewed all pertinent clinical information, including history, physical exam and plan: Yes Notes (Text): 07/17/17 14:20 I have seen and examined patient with GI fellow. No acute events overnight. She is seen resting in bed and appears comfortable. She experienced one episode of diarrhea following meal consumption last night, no episodes overnight. She denies abdominal pain, nausea, vomiting, fever/chills. Diarrhea Unexplained weight loss s/p colonoscopy yesterday showing ulceration at colo-colonic anastomotic site, without clear evidence of active colitis, normal appearing small bowel - Diet as tolerated - Continue PPI therapy - H/H stable s/p PRBC transfusion, continue to monitor - Awaiting biopsy results, stool studies - From GI standpoint, ok to discharge patient home with subsequent outpatient follow up
[2017-07-17 08:20] VITALS: BP 106/68; PULSE 59; TEMP 97.8
[2017-07-17 08:31] LABS: HEMATOCRIT 33.2 % (34.0-47.0); MEAN CELL VOLUME 83.8 fL (81.0-99.0); MEAN CORPUSCULAR HEMOGLOBIN 27.6 pg (27.0-31.0); MEAN PLATELET VOLUME 8.3 fL (7.2-11.7); RED CELL DISTRIBUTION WIDTH 20.7 % (11.5-14.5)
[2017-07-17 08:37] LABS: WHITE BLOOD COUNT 11.6 K/uL (4.8-10.8)
[2017-07-17 09:11] LABS: CHLORIDE 102 mmol/L (98-107); POTASSIUM 3.6 mmol/L (3.6-5.2); SODIUM 135 mmol/L (132-148)
[2017-07-17 09:13] LABS: GFR AFRICAN-AMERICAN > 60
[2017-07-17 09:14] LABS: ALB/GLOB RATIO 1.2 (1.0-2.1); ALKALINE PHOSPHATASE 44 U/L (38-126); ALT/SGPT 23 U/L (9-52); AST/SGOT 26 U/L (14-36); BILIRUBIN,TOTAL 0.9 mg/dL (0.2-1.3); BLOOD UREA NITROGEN 13 mg/dL (7-17); CARBON DIOXIDE 25 mmol/L (22-30); GLUCOSE,RANDOM 63 mg/dL (65-105); TOTAL PROTEIN 5.6 g/dL (6.3-8.3)
[2017-07-17 09:15] LABS: CALCIUM 8.4 mg/dl (8.6-10.4)
[2017-07-17 09:38] LABS: LYMPH # 1.6 K/uL (1.0-4.3); MONO # 0.2 K/uL (0.0-0.8)
[2017-07-17] MEDS: Sucralfate 1 gm/10 ml Oral Susp UD PO SCH (10:39)
[2017-07-17] MEDS: Pantoprazole 40 mg EC Tab PO SCH (10:39)
--- NOTE | 2017-07-17 15:38 | CARD ---
APPROVED REPORT EKG Measurement Heart [id number] <Conclusion> Sinus bradycardia Otherwise normal ECG
--- NOTE | 2017-07-17 19:03 | CP.PCM.PN ---
Subjective - Date & Time of Evaluation Date of Evaluation: 07/17/17 Time of Evaluation: 09:20 - Subjective Subjective: Dr. Emmanuel note: Patient is seen and examined in room. She is complaining of 3 episodes of diarrhea this morning. However she has very minimal abdominal pain, denies fever, chills, nausea, vomiting, chest pain, or difficulty breathing. Objective - Vital Signs/Intake and Output Vital Signs (last 24 hours): Temp Pulse Resp BP Pulse Ox 97.8 F 59 L 20 106/68 94 L 07/17/17 07:10 07/17/17 07:10 07/17/17 07:10 07/17/17 07:10 07/17/17 07:10 - Labs Labs: 07/17/17 08:14 07/17/17 08:14 PT 9.4 SECONDS (9.7-12.2) L 07/14/17 16:25 INR 0.9 07/14/17 16:25 APTT 21 SECONDS (21-34) 07/14/17 16:25 - Constitutional Appears: Non-toxic, No Acute Distress - Eye Exam Eye Exam: Normal appearance - ENT Exam ENT Exam: Normal Exam - Respiratory Exam Respiratory Exam: Clear to Ausculation Bilateral. absent: Rhonchi, Wheezes - Cardiovascular Exam Cardiovascular Exam: REGULAR RHYTHM, RRR, +S1, +S2. absent: Gallop, Rubs - GI/Abdominal Exam GI & Abdominal Exam: Soft, Normal Bowel Sounds. absent: Tenderness - Extremities Exam Extremities Exam: Normal Inspection. absent: Pedal Edema - Back Exam Back Exam: NORMAL INSPECTION - Psychiatric Exam Psychiatric exam: Normal Affect, Normal Mood - Skin Skin Exam: Normal Color Assessment and Plan - Assessment and Plan (Free Text) Assessment: (1) Crohns disease-RULED OUT Assessment & Plan: 07/17: Crohn's disease is ruled out, however patient will need to follow up with Dr. Henson's office for biopsy result and may need second opinion on pathology report from the biopsy, this was explained to patient and her at length. 07/16: Colonoscopy today, Spoke with Dr. Henson, will follow up the biopsy results, no evidence of Crohn's disease, large polyup in the rectum. continue with current medical management, all stool studies so far are negative, TB negative, follow up HIV screen tomorrow. Patient was admitted last night, she was orginally put on steroids but Dr. Henson GI consult took her off of it. She has a report of a colonscopy from [place] in the chart. Dr. Henson will repeat the colonoscopy tomorrow. She is on Dulcolax, Carafate, and IV Zofran prn. C-diff negative, other stool studies pending Status: Acute 2. Hepatitis C: 07/17: Patient will follow up Hep C viral load in Dr. Henson's office next week, this was explained to patient and her . Test came back reactive, will get Hep C antibody and Hep C quantitative. (3) Anemia Assessment & Plan: Hbg is 9.8, after transfusion of PRBCs. continue to monitor. Status: Acute (4) Prophylactic measure Assessment & Plan: PO protonix 40mg, Heparin 5000 units q8h per GI's note, SCDs Status: Acute
[2017-07-22 15:37] LABS: HEPATITIS C VIRAL RNA QUAL Not detected
[2017-07-22 18:36] VITALS: O2SAT 100
[2017-07-23 20:29] LABS: TPMT ACTIVITY 28
== END 2017-07-17 13:30 | disposition home or self-care (01) | DRG 386 ==
LOC: C.ER 14:44 → C.9E 18:22 → C.3T 20:46 → C.9E 22:55 → C.5S 23:04
PROVIDERS: ADMIT Internal Medicine Pulmonary Disease; ATTEND Internal Medicine Pulmonary Disease
PROC: 0DBL8ZX Excision of Transverse Colon, Via Natural or Artificial Opening Endoscopic, Diagnostic (ICD-10-PCS; 2017-07-16)
PROC: 0DBN8ZX Excision of Sigmoid Colon, Via Natural or Artificial Opening Endoscopic, Diagnostic (ICD-10-PCS; 2017-07-16)
PROC: 0DBP8ZZ Excision of Rectum, Via Natural or Artificial Opening Endoscopic (ICD-10-PCS; 2017-07-16)
PROC: 0DBK8ZX Excision of Ascending Colon, Via Natural or Artificial Opening Endoscopic, Diagnostic (ICD-10-PCS; principal; 2017-07-16 12:25)
DX: K50.80 Crohn's disease of both small and large intestine without complications (principal); K63.3 Ulcer of intestine; I10 Essential (primary) hypertension; K62.1 Rectal polyp; D64.9 Anemia, unspecified; D72.822 Plasmacytosis; E86.0 Dehydration; K20.9 Esophagitis, unspecified; K64.8 Other hemorrhoids; M81.0 Age-related osteoporosis without current pathological fracture